=== PATIENT | female | born 1995 | race Caucasian/White ===

== ENCOUNTER 2020-04-12 18:53 | Emergency (ER) | payer BC ==
[~2020-04-12] VITALS: Ht 160 cm; Wt 50.0 kg
[~2020-04-12 18:53] MED LIST: BIRTH CONTROL PILL; CALCIUM1 CAP PO; CEFTIN500 MG PO; GENERESS FE 0.01 CTB PO; MULTI VITAMINS1 TAB PO; NAPROSYN 2250 MG/TAB PO; NAPROSYN500 MG PO; NORCO 325 MG-51 TAB PO; PROBIOTIC FORMU1 CAP PO; PYRIDIUM200 M1 PO; VIT B; ZITHROMAX Z PA250 MG PO; [UNRECOGNIZED DRUG - OTHER]; [UNRECOGNIZED DRUG - OTHER] PO
[2020-04-12 18:59] VITALS: BP 131/83; TEMP 97.9
[2020-04-12 19:54] VITALS: PULSE 87
== END 2020-04-12 19:54 | disposition home or self-care (01) ==
LOC: COL.ER 18:53
DX: S10.11XA Abrasion of throat, initial encounter (principal); X58.XXXA Exposure to other specified factors, initial encounter

== ENCOUNTER 2022-04-04 14:56 | Emergency (ER) | payer OTHER, BC ==
[~2022-04-04] VITALS: Ht 162.6 cm; Wt 52.3 kg
[2022-04-04 15:08] VITALS: TEMP 98.3
[2022-04-04] MEDS ORDERED: FLEXERIL 1010 MG/TAB PO (15:45)
[2022-04-04 16:00] VITALS: BP 114/91; PULSE 94
== END 2022-04-04 16:03 | disposition other institution (70) ==
LOC: COL.ER 14:56
DX: S39.012A Strain of muscle, fascia and tendon of lower back, initial encounter (principal); S16.1XXA Strain of muscle, fascia and tendon at neck level, initial encounter; V89.2XXA Person injured in unspecified motor-vehicle accident, traffic, initial encounter; Y92.410 Unspecified street and highway as the place of occurrence of the external cause

== ENCOUNTER 2024-09-03 01:08 | Emergency (ER) | payer OTHER ==
[~2024-09-03] VITALS: Ht 160 cm; Wt 52.3 kg
[~2024-09-03 01:08] MED LIST changes: +FLEXERIL 1010 MG/TAB PO
[2024-09-03 01:22] VITALS: TEMP 97.5
[2024-09-03] MEDS ORDERED: Morphine 4 MG/ML VIAL IV ONE (01:45)
[2024-09-03] MEDS ORDERED: NS 1,000 ML IV ONE (01:45)
[2024-09-03] MEDS ORDERED: Ondansetron 4 MG/2 ML VIAL IV ONE (01:45)
[2024-09-03 02:17] LABS: COLLECTION METHOD CLEAN CATCH
[2024-09-03 02:39] LABS: PH 5.5 (5.0-8.5); URINE APPEARANCE CLOUDY (CLEAR/HAZY); URINE BLOOD 1+ (NEGATIVE); URINE COLOR Dark Yellow (YELLOW); URINE GLUCOSE NEGATIVE (NEGATIVE); URINE KETONE TRACE (NEGATIVE); URINE NITRATE NEGATIVE (NEGATIVE); URINE PROTEIN(semi-quant) TRACE (NEGATIVE)
[2024-09-03 02:51] LABS: MUCOUS PRESENT (NOT PRESENT); SQUAMOUS EPITHELIAL 20-50 /hpf (0-10); URINE BACTERIA MODERATE /hpf (NONE SEEN); URINE CALCIUM OXALATE CRYSTAL PRESENT (NOT PRESENT)
[2024-09-03 03:00] VITALS: BP 1074/72; PULSE 63
== END 2024-09-03 04:07 | disposition home or self-care (01) ==
LOC: COL.ER 01:08
PROVIDERS: Emergency Medicine
DX: R10.31 Right lower quadrant pain (principal)